=== PATIENT | male | born 1940 | race Caucasian/White ===

== ENCOUNTER 2016-08-26 04:35 | Emergency (ER) | payer MEDICARE, OTHER ==
[2016-08-26 04:55] VITALS: TEMP 96
--- NOTE | 2016-08-26 04:58 | ED.PDOC ---
History of Present Illness - General Source: patient, RN notes reviewed, Vital Signs reviewed Exam Limitations: no limitations - History of Present Illness Initial Comments: Patient reports that since yesterday evening he has been going in and out of a. fib. Other than the palpitations he is not having any symptoms. HE is concerned about getting a blood clot. He is taking Aspirin 325mg 2 daily. Timing/Duration: 7-24 hours Severity: mild Location: other - No pain Activities at Onset: none Prior Chest Pain/Cardiac Workup: other - Hx of A. fib. Treated by Dr. Flowers Improving Factors: nothing Worsening Factors: nothing Nitro Today/Relief: no nitro taken today Aspirin Treatment Today: 325 mg x 1 - X 2 Associated Symptoms: denies symptoms <Monserrat Mehta - Last Filed: 08/26/16 06:37> <Dani Tiwari - Last Filed: 08/26/16 09:46> - General Chief Complaint: Cardiovascular Problem Stated Complaint: irregular heart beat R/T A-fib Time Seen by Provider: 08/26/16 04:51 - History of Present Illness Allergies/Adverse Reactions: Allergies NO KNOWN ALLERGY Allergy (Unverified 05/01/12 21:59) Home Medications: Ambulatory Orders Digoxin 0.25 mg PO DAILY 08/26/16 Escitalopram [Lexapro] 10 mg PO DAILY 08/26/16 Irbesartan [Avapro] 150 mg PO DAILY 08/26/16 Potassium Chloride [K-Tab] 10 meq PO DAILY 08/26/16 Rivaroxaban [Xarelto] 20 mg PO DAILY #30 tab 08/26/16 Sotalol HCl 80 mg PO BID 08/26/16 Review of Systems - Review of Systems Constitutional: States: no symptoms reported EENTM: States: no symptoms reported Respiratory: States: no symptoms reported. Denies: short of breath Cardiology: States: palpitations. Denies: chest pain, edema, syncope Gastrointestinal/Abdominal: States: no symptoms reported Genitourinary: States: no symptoms reported Musculoskeletal: States: no symptoms reported Skin: States: no symptoms reported Neurological: States: no symptoms reported Endocrine: States: no symptoms reported Hematologic/Lymphatic: States: no symptoms reported <Monserrat Mehta - Last Filed: 08/26/16 06:37> Past Medical History (General) - Patient Medical History Hx Seizures: No Hx Stroke: No Hx Dementia: No Hx Asthma: No Hx of COPD: No Hx Cardiac Disorders: Yes Hx Congestive Heart Failure: No Hx Pacemaker: No Hx Hypertension: Yes Hx Thyroid Disease: No Hx Diabetes: No Hx Gastroesophageal Reflux: No Hx Renal Disease: No Hx Cancer: Yes - bladder Hx of HIV: No Hx Hepatitis C: No Hx MRSA: No Surgical History: colectomy - Vaccination History Hx Tetanus, Diphtheria Vaccination: No Hx Influenza Vaccination: No Hx Pneumococcal Vaccination: No Immunizations Up to Date: - unknown - Social History Hx Tobacco Use: No Hx Chewing Tobacco Use: No Hx Alcohol Use: No Hx Substance Use: No Hx Substance Use Treatment: No Hx Depression: No Feels Threatened In Home Enviroment: No Feels Threatened In a Relationship: No Hx Physical Abuse: No Hx Emotional Abuse: No Hx Suspected Abuse: No <Monserrat Mehta - Last Filed: 08/26/16 06:37> Family Medical History - Family History Mother Family History: Unknown Living Status: <Monserrat Mehta - Last Filed: 08/26/16 06:37> Physical Exam - Physical Exam General Appearance: Alert, Comfortable, No apparent distress, Well Developed, Well Groomed, Well Hydrated, Well Nourished Neck: non-tender, full range of motion, supple, normal inspection Respiratory: chest non-tender, lungs clear, normal breath sounds, no respiratory distress, no accessory muscle use Cardiovascular/Chest: no edema, no gallop, no JVD, no murmur, irregularly irregular Gastrointestinal/Abdominal: normal bowel sounds, non tender, soft, no organomegaly, no pulsatile mass Extremity: normal range of motion, non-tender, normal inspection Neurologic: no motor/sensory deficits, alert, normal mood/affect, oriented x 3 Skin Exam: normal color, warm/dry Lymphatic: no adenopathy Comments: Vital Signs - 24 hr 08/26/16 08/26/16 08/26/16 04:48 05:15 05:50 Temperature 96 F L Pulse Rate 81 Pulse Rate [ 81 88 78 monitor] Respiratory 18 Rate Blood Pressure 129/93 114/64 117/73 [Right Arm] O2 Sat by Pulse 94 L Oximetry 08/26/16 06:00 Temperature Pulse Rate Pulse Rate [ 74 monitor] Respiratory 16 Rate Blood Pressure 116/68 [Right Arm] O2 Sat by Pulse Oximetry <Monserrat Mehta - Last Filed: 08/26/16 06:37> Progress - Progress Progress: 08/26/16 06:34 Patient still in a. fib after Diltiazem. Continues to be rate controlled in the 70's. BP is 119/65 Discussed with patient. Will give dose of Lovenox, recheck cardiac enzymes and BNP and discuss with Dr. Flowers when he comes in for clinic in am. - EKG/XRAY/CT EKG: Atrial, Fibrillation, no ST T wave changes Comments: rate 79 bpm XRAY: chest - No acute cardiopulmonary process <Monserrat Mehta - Last Filed: 08/26/16 06:37> - Progress Progress: 08/26/16 09:41 the patient is a 76-year-old male presenting secondary to recurrence of his atrial fibrillation while on sotalol and digoxin. The patient simply feels the atrial fibrillation and mild fatigue. Vital signs are actually technically normal. No syncope or near-syncope. This has become more problematic since changing to the sotalol from multaq approximately 1 months ago. the patient has been taking aspirin did receive a dose of Lovenox here today. The patient did receive a small dose of diltiazem here today which did not do much. The patient is still in atrial fibrillation. We are going to place the patient on xarelto for the very near future until he can be reevaluated by his primary care doctor or requirements manager confirming a resumption of normal sinus rhythm. He is currently taking sotalol 120 mg twice daily and that is going to be increased to 160 mg twice daily. I'm going to have him hold his Avapro for now secondary to his blood pressures being in the low normal range now before the sotalol increase. He needs to contact his requirements manager tomorrow. His requirements manager is moving offices today and is not able to be contacted. the patient is having no chest pain and no shortness of breath. Repeat cardiac enzymes are negative. Clinical presentation is reassuring. if his blood pressures start dropping too low or his heart rate starts dropping too low, then he has to reduce his sotalol dose back to the 120 mg twice daily. The patient has agreed to these measures. Follow up with primary care doctor towards the end of the week. - Results/Orders Results/Orders: Laboratory Tests 03/08/26/16 08/26/16 05:00 06:36 08:25 WBC 6.5 RBC 4.51 L Hgb 13.2 L Hct 39.5 L MCV 87.5 MCH 29.2 MCHC 33.3 RDW 13.3 Plt Count 130 MPV 8.9 Absolute Neuts (auto) 4.20 Absolute Lymphs (auto) 1.70 Absolute Monos (auto) 0.40 Absolute Eos (auto) 0.10 Absolute Basos (auto) 0.10 Neutrophils % 64.6 Lymphocytes % 26.9 Monocytes % 6.5 Eosinophils % 0.8 L Basophils % 1.2 Sodium 138 Potassium 3.9 Chloride 105 Carbon Dioxide 25 Anion Gap 11.9 L BUN 24 H Creatinine 1.04 BUN/Creatinine Ratio 23.1 H Random Glucose 105 Serum Osmolality 280.1 Calcium 9.1 Total Bilirubin 0.5 AST 18 ALT 10 Alkaline Phosphatase 44 Creatine Kinase 90 80 CK-MB (CK-2) 2.1 2.0 CK-MB (CK-2) % Not Reportable Not Reportable Troponin I < 0.02 < 0.02 B-Natriuretic Peptide 544.0 H* Serum Total Protein 7.0 Albumin 3.9 Globulin 3.1 Albumin/Globulin Ratio 1.3 TSH 3.16 EKG and telemetry monitoring confirmed atrial fibrillation with good rate control.no acute ST segment changes noted worrisome for ischemia. old previous rib fractures seen on the chest x-ray only <Dani Tiwari - Last Filed: 08/26/16 09:46> Departure <Monserrat Mehta - Last Filed: 08/26/16 06:37> - Departure Diet: regular diet Activity: increase activity as tolerated <Dani Tiwari - Last Filed: 08/26/16 09:46> - Departure Clinical Impression: Atrial fibrillation with controlled ventricular response Disposition: Discharge to Home or Self Care Condition: Fair Departure Forms: ED Discharge - Pt. Copy, Patient Portal Self Enrollment Instructions: DI for Atrial Fibrillation Referrals: Josiah Tiwari MD [Primary Care Provider] - 1-5 Days Prescriptions: Rivaroxaban [Xarelto] 20 mg PO DAILY #30 tab Home Medications: Ambulatory Orders Digoxin 0.25 mg PO DAILY 08/26/16 Escitalopram [Lexapro] 10 mg PO DAILY 08/26/16 Irbesartan [Avapro] 150 mg PO DAILY 08/26/16 Potassium Chloride [K-Tab] 10 meq PO DAILY 08/26/16 Rivaroxaban [Xarelto] 20 mg PO DAILY #30 tab 08/26/16 Sotalol HCl 80 mg PO BID 08/26/16 Additional Instructions: the patient is a 76-year-old male presenting secondary to recurrence of his atrial fibrillation while on sotalol and digoxin. The patient simply feels the atrial fibrillation and mild fatigue. Vital signs are actually technically normal. No syncope or near-syncope. This has become more problematic since changing to the sotalol from multaq approximately 1 months ago. the patient has been taking aspirin did receive a dose of Lovenox here today. The patient did receive a small dose of diltiazem here today which did not do much. The patient is still in atrial fibrillation. We are going to place the patient on xarelto for the very near future until he can be reevaluated by his primary care doctor or requirements manager confirming a resumption of normal sinus rhythm. He is currently taking sotalol 120 mg twice daily and that is going to be increased to 160 mg twice daily. I'm going to have him hold his Avapro for now secondary to his blood pressures being in the low normal range now before the sotalol increase. He needs to contact his requirements manager tomorrow. His requirements manager is moving offices today and is not able to be contacted. the patient is having no chest pain and no shortness of breath. Repeat cardiac enzymes are negative. Clinical presentation is reassuring. if his blood pressures start dropping too low or his heart rate starts dropping too low, then he has to reduce his sotalol dose back to the 120 mg twice daily. The patient has agreed to these measures. Follow up with primary care doctor towards the end of the week.
--- NOTE | 2016-08-26 06:34 | RAD ---
Clinical History : palpitations , MAIN Exam : Portable AP view of the chest 08/26/2016 5:31 AM CDT Comparisons : Portable AP view of the chest May 01, 2012 Findings : The lungs are clear without focal consolidation or pleural effusion. The heart is normal in size. The mediastinal contours are normal in appearance. There are vascular calcifications along the aortic arch. The thoracic spine is age appropriate. The shoulders are unremarkable. There are age-indeterminate fractures of the right fifth through seventh ribs posteriorly. Limited evaluation of the upper abdomen demonstrates no gross abnormalities. Impression: 1. No acute cardiopulmonary disease. 2. Chronic appearing right-sided rib fractures. Electronically signed by: Marina Rader MD 08/26/2016 6:33 AM CDT
[2016-08-26] MEDS ORDERED: ENOXAPARIN SODIUM 100 MG/ML SYG SUBCU ONE (06:41)
[2016-08-26 09:52] VITALS: BP 117/72; O2SAT 96
== END 2016-08-26 09:52 | disposition home or self-care (01) ==
LOC: ER 04:35
DX: I48.91 Unspecified atrial fibrillation (principal); I10 Essential (primary) hypertension; Z85.51 Personal history of malignant neoplasm of bladder; Z79.899 Other long term (current) drug therapy
CPT/HCPCS: 36415; 71010; 80053; 82550; 82553; 83880; 84443; 84484; 85025; 93005; J1650

== ENCOUNTER → 2016-11-05 | Outpatient (CLI) | payer MEDICARE, OTHER | END | disposition home or self-care (01) | LOC: GMAM 10:09 | PROVIDERS: ATTEND Family Medicine | DX: C61 Malignant neoplasm of prostate (principal); E55.9 Vitamin D deficiency, unspecified; R31.0 Gross hematuria ==

== ENCOUNTER → 2016-11-10 | Outpatient (CLI) | payer MEDICARE, OTHER | END | disposition home or self-care (01) | LOC: GMAM 19:10 | PROVIDERS: ATTEND Family Medicine | DX: I48.91 Unspecified atrial fibrillation (principal); C61 Malignant neoplasm of prostate ==

== ENCOUNTER → 2017-04-27 | Outpatient (CLI) | payer MEDICARE, OTHER | END | disposition home or self-care (01) | LOC: GMAM 14:03 | PROVIDERS: ATTEND Family Medicine | DX: C61 Malignant neoplasm of prostate (principal); Z79.899 Other long term (current) drug therapy; E55.9 Vitamin D deficiency, unspecified ==

== ENCOUNTER → 2017-07-28 | Outpatient (CLI) | payer MEDICARE, OTHER | LOC: GMAM 11:07 | PROVIDERS: ATTEND Family Medicine | DX: E55.9 Vitamin D deficiency, unspecified (principal) ==

== ENCOUNTER → 2017-12-31 | Outpatient (CLI) | payer MEDICARE, OTHER | LOC: GMAM 10:45 | PROVIDERS: ATTEND Family Medicine | DX: E55.9 Vitamin D deficiency, unspecified (principal); Z79.899 Other long term (current) drug therapy ==

== ENCOUNTER → 2018-04-14 | Outpatient (CLI) | payer MEDICARE, OTHER | LOC: GMAM 11:57 | PROVIDERS: ATTEND Family Medicine | DX: C61 Malignant neoplasm of prostate (principal) ==

== ENCOUNTER → 2018-06-23 | Outpatient (CLI) | payer MEDICARE, OTHER | LOC: GMAM 13:20 | PROVIDERS: ATTEND Family Medicine | DX: C61 Malignant neoplasm of prostate (principal); E55.9 Vitamin D deficiency, unspecified ==

== ENCOUNTER → 2018-06-30 | Outpatient (CLI) | payer MEDICARE, OTHER | LOC: GMAM 10:30 | PROVIDERS: ATTEND Family Medicine | DX: E53.8 Deficiency of other specified B group vitamins (principal); Z79.899 Other long term (current) drug therapy ==

== ENCOUNTER → 2018-07-01 | Outpatient (CLI) | payer MEDICARE, OTHER ==
--- NOTE | 2018-07-02 09:35 | US ---
EXAM DESCRIPTION: Extremity,Lower Henry Arteries: Ultrasound. CLINICAL HISTORY: PVD COMPARISON: None. TECHNIQUE: Doppler evaluation of the bilateral lower extremity arterial flow waveforms and velocities. FINDINGS: Arterial waveforms in the right lower extremity are triphasic in the right common femoral artery, and the distal right femoral artery. Biphasic waveforms in the proximal and mid right femoral artery, right popliteal artery. Monophasic in the right peroneal artery and blunted monophasic in the right SILK CONDITIONER and DPA.. Arterial waveforms in the left lower extremity are triphasic in the left common femoral artery, distal left femoral artery, left popliteal artery. Biphasic in the proximal left femoral artery in the mid left femoral artery, left peroneal artery, and left SILK CONDITIONER. Monophasic in the left DPA.. Comments: Numerous atherosclerotic calcifications seen bilaterally. IMPRESSION: Doppler evaluation shows likely significant atherosclerotic occlusive disease in the left calf and right KASANDRA and DPA. Bilateral prominent atherosclerotic calcifications in the common femoral arteries. Consider correlation with CTA abdominal aorta and bilateral lower extremity runoff. Electronically signed by: Zach Garcia MD 07/02/2018 9:32 AM SENIOR PRINCIPAL SOFTWARE ENGINEER
== END ==
LOC: US 13:36
PROVIDERS: ATTEND Family Medicine
DX: I73.9 Peripheral vascular disease, unspecified (principal)

== ENCOUNTER → 2018-07-13 | Outpatient (CLI) | payer MEDICARE, OTHER ==
--- NOTE | 2018-07-13 13:12 | CT ---
EXAM DESCRIPTION: CTA Runoff: Computed Tomography. CLINICAL HISTORY: UNSPECIFIED PVD COMPARISON: Lower extremity Doppler ultrasound 07/01/2018. TECHNIQUE: CT angiography of the abdominal aorta and both lower extremities is performed during rapid bolus administration of IV contrast media. Three-dimensional volume-rendering imaging is reviewed along with 2.5 x 2.5 mm axial source images, and 2.5 mm coronal and sagittal reformats, generated at the radiologist workstation. Total Exam DLP: 1693.43 mGy-cm. This exam was performed according to our departmental CT dose-optimization program which includes automated exposure control, adjustment of the mA and/or kV according to patient size and/or use of iterative reconstruction technique; to reduce radiation dose to as low as reasonably achievable (ALARA). FINDINGS: Upper abdominal aorta: Minimal atherosclerotic calcification and intimal wall thickening. Minimal calcification of the ostia of the celiac axis and SMA. No poststenotic dilation. Minimal calcification of the main trunks distal to the ostium. No stenosis or aneurysm. Mid-abdominal aorta: No stenosis or aneurysm. Moderate atherosclerotic calcification and intimal wall thickening. Single renal artery on the left with dual arteries on the right similar size and calcification of the ostia bilaterally with no spinal stenotic dilation. Distal abdominal aorta: Moderate atherosclerotic calcification and intimal wall thickening with narrowing but no stenosis. Minimal calcification ostia of the HUNTER but no stenosis or poststenotic dilation. Common iliacs: Minimal atherosclerotic calcification bilaterally and intimal wall thickening with no aneurysm or stenosis. Internal iliacs: Bilaterally moderate atherosclerotic calcification and narrowing. Bilateral external iliac arteries: Slight narrowing on the right more than the left no stenosis or aneurysm. Bilateral OPTICAL TECHNICIAN's: Minimal atherosclerotic calcification and intimal wall thickening relatively symmetric. Bilateral SFAs: Minimal to moderate atherosclerotic calcification and intimal wall thickening with no aneurysm or significant stenosis. No collateral flow. Popliteals: Minimal atherosclerotic calcification and intimal narrowing bilaterally, no stenosis. Right trifurcation vessels: Intermittent calcification and possible contrast in the KASANDRA with fair runoff into the DPA secondary to collaterals from the peroneal distally. Peroneal shows better than normal flow, terminating just above the distal synostosis. Fair flow in the FEATHER WASHER with calcification and fair runoff into the posterior ankle and foot. Left trifurcation vessels: Intermittent contrast and calcification of the KASANDRA with poor runoff into the DPA. Good to fair contrast visualization of the peroneal which may supply collaterals to the DPA. Intermittent calcification of the FEATHER WASHER with fair to good contrast flow in the posterior calf and fair runoff into the posterior left ankle and foot. Other: Minimal atelectasis in the bilateral lower lobes of the lungs. Bladder cystectomy with bilateral ureteral ileal conduit and ileostomy right lower quadrant. IMPRESSION: 1. Minimal to moderate disease in the abdominal aorta and bilateral common, internal, and external iliacs. Minimal disease in the major branch vessels of the abdominal aorta. Two right renal arteries relatively symmetric in size. 2. Fair runoff into the right KASANDRA/ DPA and right FEATHER WASHER, with right peroneal flow distally sending collaterals to the right DPA. 3. Poor visualization of the distal left KASANDRA and DPA, with collaterals from the distal left peroneal artery. Fair runoff into the left posterior ankle. Electronically signed by: Zach Garcia MD 07/13/2018 1:10 PM [facility]
== END ==
LOC: CT 08:18
PROVIDERS: ATTEND Family Medicine
DX: I73.9 Peripheral vascular disease, unspecified (principal)

== ENCOUNTER → 2019-01-06 | Outpatient (CLI) | payer MEDICARE, OTHER | LOC: GMAM 10:37 | PROVIDERS: ATTEND Family Medicine | DX: E53.8 Deficiency of other specified B group vitamins (principal); C61 Malignant neoplasm of prostate; E55.9 Vitamin D deficiency, unspecified; I10 Essential (primary) hypertension; R73.9 Hyperglycemia, unspecified ==

== ENCOUNTER → 2019-01-11 | Outpatient (CLI) | payer MEDICARE, OTHER | LOC: GMAM 14:18 | PROVIDERS: ATTEND Family Medicine | DX: Z79.899 Other long term (current) drug therapy (principal) ==

== ENCOUNTER 2020-04-24 08:25 | Outpatient (CLI) | payer MEDICARE, OTHER | END 2020-04-25 15:35 | disposition home or self-care (01) | LOC: INFRM 08:25 | PROVIDERS: ATTEND Family Medicine | DX: U07.1 COVID-19 (principal); I48.91 Unspecified atrial fibrillation; I10 Essential (primary) hypertension; Z23 Encounter for immunization ==

== ENCOUNTER → 2020-05-28 | Outpatient (CLI) | payer MEDICARE, OTHER | LOC: GMAM 13:26 | PROVIDERS: ATTEND Family Medicine | DX: U07.1 COVID-19 (principal); R53.83 Other fatigue ==

== ENCOUNTER → 2020-05-30 | Outpatient (CLI) | payer MEDICARE, OTHER ==
--- NOTE | 2020-05-30 20:31 | CT ---
EXAM DESCRIPTION: Abdomen/Pelvis w/Contrast: Computed Tomography. CLINICAL HISTORY: 79 years Male NAUSEA COMPARISON: The abdominal aorta to lower extremity CTA femora 2019. TECHNIQUE: Spiral-axial scans at 5 x 5 mm intervals through the abdomen and pelvis, before and after nonionic IV contrast without oral contrast. Post IV contrast scans during venous phase. Axial 2.5 mm scans through the pancreas during arterial phase. Coronal and sagittal 2.0 mm reconstructions during portal phase. No delayed scans. No adverse reactions. Total Exam DLP: 2447 mGy-cm. This exam was performed according to our departmental dose-optimization program which includes automated exposure control, adjustment of the mA and/or kV according to patient size and/or use of iterative reconstruction technique; to reduce radiation dose to as low as reasonably achievable (ALARA). FINDINGS: Lung bases and pleura: Bilateral mosaic densities in the lung parenchyma. Peripheral subpleural groundglass opacities and interstitial densities predominantly in the bases. Also subpleural blebs. No large consolidation and no effusion. Liver, Stomach, Spleen, Adrenal Glands: Long axis right hepatic lobe 20.8 cm. Diffuse low-density in the liver with no focal lesions or abnormal enhancement. Spleen is 16 x 15 centimeters. Stomach and adrenal glands are negative. No ascites. Pancreas, Gallbladder, Ducts: Tail of the pancreas abuts the splenic hilum. No unusual calcifications. Heterogeneous enhancement but no enhancing or nonenhancing mass. No peripancreatic fatty stranding or masses. Gallbladder visualized with normal enhancement. Question of a small cap on the gallbladder near the neck of the gallbladder. Small subcentimeter lymph nodes abutting the duct, the gallbladder, and the portal vein. Normal caliber of the duct. No periportal mass. Kidneys and Ureters: 1.5 cm cyst on the anterior aspect of the upper pole of the left kidney. 2.3 cm somewhat irregular mass in the posterior subcapsular upper pole left kidney with Hounsfield density +51 on arterial phase and +83 on portal venous phase. No calcifications and no perirenal fluid, stranding, or mass. 1.6 cm lobulated cyst lateral lower pole juxtacortical without calcifications. Irregular masslike area with decreased enhancement and perirenal stranding lateral anterior cortex mid kidney, measuring 2.2 x 2.3 cm with Hounsfield density 57 on arterial phase and 100 on portal venous phase. Similar-appearing cortical lesions are visualized on the anterior lower pole of the right kidney also posterior lower pole and juxtacortical posterior upper pole right kidney. Large staghorn calculus in the upper collecting system of the left kidney measuring 2.6 cm transverse and 1.1 cm AP. Minimal hydronephrosis in the upper pole. Prominent right extrarenal pelvis with no radiodense stones in the right kidney. Distal ureters connected to an ileal conduit with ileal anastomosis in the right lower quadrant of the abdomen appear right pelvis. No ureteral obstruction. Mesentery: Minimal perirenal stranding bilaterally, more left than right. No free fluid or free air. Aorta: Moderate atherosclerotic calcification and intimal wall thickening also involving the ostia of the major branch vessels. Small Bowel: Ileostomy and ileal conduit as previously described right lower quadrant with no obstruction or complications. Ileoileal anastomosis in the right anterior pelvis with no complications.. Terminal Ileum/Cecum: Normal caliber with minimal to moderate fecal matter. Colon: Minimal to moderate amount of fecal matter with small air-fluid levels. Minimal redundancy of the sigmoid colon. No complications. Pelvic Organs: Urinary bladder resected with bilateral pelvic surgical clips. No free fluid. Prostate gland not seen. Spine and Bony Pelvis: Spondylosis L3-L4 and L4-L5 midline and right of midline with significant right foraminal narrowing at both levels and canal narrowing. Schmorl's nodes at several endplates in the lumbar spine. Central more than anterior T11 compression type vertebral body fracture, also seen on prior CT scan. No significant retrolisthesis. Abdominal Wall/Back Soft Tissues: No complication seen in the right lower quadrant ileostomy. IMPRESSION: 1. Bilateral ill-defined partially enhancing renal masses extending from the collecting systems to the cortex with minimal perirenal stranding, more left than right. This is most likely representing pyelonephritis. This was not seen on the prior study. 2. Large staghorn calculus in the upper pole of the left kidney measuring 2.6 x 1.1 cm, not present on the prior study. Minimal hydronephrosis upper pole left kidney. Extracortical cysts in the left kidney are stable since the prior study. 3. Again seen is prior total bladder resection secondary to malignancy with ureters anastomose into an ileal conduit through a right lower quadrant ileostomy. No obstruction or complications in the ureters, ileal conduit, or ileostomy. No small bowel obstruction, or complications of ileoileal anastomosis. 4. No mass in the pancreas; heterogeneous enhancement. No peripancreatic masses or fatty stranding or fluid.. 5. Stable central more than anterior T11 vertebral body compression type fracture with no significant retrolisthesis. Stable spondylosis L3-4 and L4-5 with significant right foraminal narrowing.. Electronically signed by: Zach Garcia MD 05/30/2020 8:29 PM TEST OPERATOR
== END ==
LOC: CT 08:29
PROVIDERS: ATTEND Family Medicine
DX: R11.0 Nausea (principal); N28.9 Disorder of kidney and ureter, unspecified; N20.0 Calculus of kidney; Z98.890 Other specified postprocedural states; Z85.9 Personal history of malignant neoplasm, unspecified; Z93.2 Ileostomy status; S22.080A Wedge compression fracture of T11-T12 vertebra, initial encounter for closed fracture; M47.896 Other spondylosis, lumbar region